=== PATIENT | female | born 1935 | race Two or more races ===

== ENCOUNTER 2019-09-08 15:41 | Inpatient (IN) | payer MEDICAID, MEDICARE, OTHER ==
[~2019-09-08] VITALS: Ht 167.6 cm; Wt 63.2 kg
[2019-09-08] MEDS ORDERED: PLEASE ENTER HEIGHT AND WEIGHT MC SCH (17:00)
[2019-09-08] MEDS ORDERED: SODIUM CHLORIDE FLUSH 10ML SYR IVF ONE (17:00)
[2019-09-08] MEDS ORDERED: PLEASE ENTER ALLERGIES MC SCH (17:00)
--- NOTE | 2019-09-08 17:00 | NUR ---
BIB BY ROYCE FROM [facility]/RIGHT SIDED FACIAL DROOP/CONFUSION (STARTED AT NOON). 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 HOWEVER TEMP 101.5. SON REPORTS SIMILIAR SYMPTOMS WITH PRIOR UTI'S, HR 115 PROVIDER TO BEDSIDE- TO WORKUP INFECTION AND STROKE (NOT CODE NEURO NOT WITHIN WINDOW) REPORT TO RENETTA BELTRE
--- NOTE | 2019-09-08 17:00 | NUR ---
REPORT FROM PATT CHUNG. PT SITTING UP IN BED, NAD NOTED AT THIS TIME. RESPIRATIONS EVEN AND UNLABORED ON RA. SON SITTING OUTSIDE OF ROOM. AWAITING LABS AND IMAGING.
[2019-09-08] MEDS ORDERED: LISI-170 PO (17:12)
[2019-09-08] MEDS ORDERED: ASPI-496 PO (17:12)
[2019-09-08] MEDS ORDERED: SIMV10TA3 PO (17:12)
[2019-09-08] MEDS ORDERED: METF500T27 PO (17:13)
--- NOTE | 2019-09-08 17:20 | NUR ---
LAB AT BEDSIDE. FULL SET OF LABS INCLUDING BLOOD CULTURES OBTAINED
[2019-09-08 17:28] LABS: BASOPHILS # (AUTO) 0.05 x10^3/uL (0-0.1); BASOPHILS % (AUTO) 1 % (0-1); EOSINOPHILS % (AUTO) 0 % (1-7); LYMPHOCYTES # (AUTO) 0.79 x10^3/uL (1-3.4); LYMPHOCYTES % (AUTO) 11 % (22-44); MD NO; MEAN CORPUSCULAR HEMOGLOBIN 28.4 pg (27.0-34.8); MEAN CORPUSCULAR HGB CONC 32.9 g/dL (32.4-35.8); MEAN CORPUSCULAR VOLUME 86.6 fL (80-100); MEAN PLATELET VOLUME 9.9 fL (7.4-10.4); MONOCYTES # (AUTO) 0.16 x10^3/uL (0.2-0.8); MONOCYTES % (AUTO) 2 % (2-9); NEUTROPHILS # (AUTO) 6.08 x10^3/uL (1.8-6.8); NEUTROPHILS % (AUTO) 86 % (42-75); PLATELET COUNT 193 x10^3/uL (130-400); RED BLOOD COUNT 4.25 x10^6/uL (3.82-5.3); RED CELL DISTRIBUTION WIDTH 14.7 % (9.6-15.2)
--- NOTE | 2019-09-08 17:32 | NUR ---
STRAIGHT CATH PERFORMED. CHAPERONED BY LUISA JAVIER (FEMALE) SPECIMEN SENT TO LAB FOR ANALYSIS TO CT SCAN AT 1731 PER SON NEURO EXAM REMAINS UNREMARKABLE (JUST SLIGHTLY CONFUSED)
[2019-09-08 17:41] LABS: ALANINE AMINOTRANSFERASE 16 U/L (12-78); ALBUMIN 3.9 g/dL (3.4-5.0); ANION GAP 8 mmol/L (5-15); CALCIUM 8.6 mg/dL (8.5-10.1); CHLORIDE 105 mmol/L (98-107); CREATININE 1.28 mg/dL (0.55-1.02)
[2019-09-08 17:43] LABS: ALKALINE PHOSPHATASE 62 U/L (45-117); BILIRUBIN,TOTAL 0.5 mg/dL (0.2-1.0); TOTAL PROTEIN 7.7 g/dL (6.4-8.2)
[2019-09-08 17:49] LABS: MICROSCOPIC NOT IND
[2019-09-08 17:51] LABS: CULTURE INDICATED? NO
--- NOTE | 2019-09-08 18:01 | NUR ---
PT RESTING BACK IN BED WATCHING TELEVISION. NAD NOTED AT THIS TIME. RESPIRATIONS EVEN ON RA. SON OUTSIDE OF ROOM. PT HARD OF HEARING, DENIES FURTHER NEEDS AT THIS TIME.
--- NOTE | 2019-09-08 19:10 | NUR ---
PT UP TO BATHROOM WITH ONE PERSON ASSIST/ESCORT. FULL BEDDING CHANGE, GOWN CHANGE, CHUX IN PLACE. HOSPITALIST AT BEDSIDE.
--- NOTE | 2019-09-08 19:27 | NUR ---
ITEMS FOR LP AT BEDSIDE.
[2019-09-08] MEDS ORDERED: BISACODYL 10 MG SUPP PR PRN (19:30)
[2019-09-08] MEDS ORDERED: ONDANSETRON 4 MG TABLET PO PRN (19:30)
[2019-09-08] MEDS ORDERED: ACETAMINOPHEN 650 MG/20.3 ML UDC PO PRN (19:30)
--- NOTE | 2019-09-08 20:05 | NUR ---
PT TOLERATED LP ATTEMPT WELL. UNABLE TO WITHDRAW ANY FLUID. LAYING BACK IN BED, PT AND SON AWARE OF NEED TO LAY FLAT.
--- NOTE | 2019-09-08 20:05 | NUR ---
CALL FOR REPORT.
--- NOTE | 2019-09-08 20:15 | NUR ---
CALL FOR REPORT.
--- NOTE | 2019-09-08 20:40 | NUR ---
THIRD ATTEMPT TO CALL REPORT.
[2019-09-08] MEDS: SIMVASTATIN 10 MG TABLET PO SCH (21:24)
[2019-09-08] MEDS: SODIUM CHLORIDE 0.9% 1,000 ML IV SCH (21:24)
[2019-09-08 23:30] VITALS: BP 127/68
[2019-09-09] VITALS (8 sets, daily range): BP systolic 106–150; BP diastolic 58–96
[2019-09-09] MEDS: SENNA/DOCUSATE TABLET PO PRN (05:37)
[2019-09-09 05:49] LABS: CHLORIDE 110 mmol/L (98-107)
[2019-09-09 06:04] LABS: ALANINE AMINOTRANSFERASE 20 U/L (12-78); ALBUMIN 3.1 g/dL (3.4-5.0); ALKALINE PHOSPHATASE 48 U/L (45-117); ANION GAP 5 mmol/L (5-15); BILIRUBIN,TOTAL 0.6 mg/dL (0.2-1.0); CALCIUM 8.2 mg/dL (8.5-10.1); CHOL/HDL RATIO 2.3; CHOLESTEROL, TOTAL 137 mg/dL (140-239); CREATININE 1.13 mg/dL (0.55-1.02); HDL CHOL % 43 % (28-40); HDL CHOLESTEROL (DIRECT) 59 mg/dL (40-60); LDL CHOLESTEROL,CALCULATED 65 mg/dL (54-169); LDL/HDL RATIO 1.1 (0.5-3.0); TOTAL PROTEIN 6.4 g/dL (6.4-8.2); TRIGLYCERIDES 63 mg/dL (50-200); VLDL CHOLESTEROL 13 mg/dL (0-25)
[2019-09-09 06:29] LABS: BASOPHILS # (AUTO) 0.04 x10^3/uL (0-0.1); BASOPHILS % (AUTO) 1 % (0-1); EOSINOPHILS # (AUTO) 0.09 x10^3/uL (0-0.4); EOSINOPHILS % (AUTO) 2 % (1-7); LYMPHOCYTES # (AUTO) 1.22 x10^3/uL (1-3.4); LYMPHOCYTES % (AUTO) 26 % (22-44); MD NO; MEAN CORPUSCULAR HEMOGLOBIN 28.5 pg (27.0-34.8); MEAN CORPUSCULAR HGB CONC 32.8 g/dL (32.4-35.8); MEAN CORPUSCULAR VOLUME 86.8 fL (80-100); MEAN PLATELET VOLUME 10.2 fL (7.4-10.4); MONOCYTES % (AUTO) 9 % (2-9); NEUTROPHILS # (AUTO) 2.88 x10^3/uL (1.8-6.8); NEUTROPHILS % (AUTO) 62 % (42-75); PLATELET COUNT 164 x10^3/uL (130-400); RED BLOOD COUNT 3.81 x10^6/uL (3.82-5.3); RED CELL DISTRIBUTION WIDTH 14.9 % (9.6-15.2)
[2019-09-09] MEDS ORDERED: CYANOCOBALAMIN 1,000 MCG/ML, 1ML IM ONE (07:00)
[2019-09-09] MEDS: SODIUM CHLORIDE 0.9% 1,000 ML IV SCH (08:50)
[2019-09-09] MEDS: ASPIRIN 81 MG TABLET CHEW PO/NG SCH (09:58)
[2019-09-09] MEDS ORDERED: GADOTERATE 7.5 MMOL/15 ML SYR ONE (14:27)
[2019-09-09] MEDS ORDERED: LIDOCAINE-MPF 1%, 5ML ONE (14:50)
[2019-09-09] MEDS: SIMVASTATIN 10 MG TABLET PO SCH (21:14)
[2019-09-10 00:19] VITALS: BP 170/69
[2019-09-10 04:33] LABS: BASOPHILS # (AUTO) 0.05 x10^3/uL (0-0.1); BASOPHILS % (AUTO) 1 % (0-1); EOSINOPHILS # (AUTO) 0.13 x10^3/uL (0-0.4); EOSINOPHILS % (AUTO) 3 % (1-7); LYMPHOCYTES # (AUTO) 1.03 x10^3/uL (1-3.4); LYMPHOCYTES % (AUTO) 25 % (22-44); MD NO; MEAN CORPUSCULAR HEMOGLOBIN 28.3 pg (27.0-34.8); MEAN CORPUSCULAR HGB CONC 32.3 g/dL (32.4-35.8); MEAN CORPUSCULAR VOLUME 87.8 fL (80-100); MEAN PLATELET VOLUME 9.9 fL (7.4-10.4); MONOCYTES # (AUTO) 0.35 x10^3/uL (0.2-0.8); MONOCYTES % (AUTO) 9 % (2-9); NEUTROPHILS # (AUTO) 2.55 x10^3/uL (1.8-6.8); NEUTROPHILS % (AUTO) 62 % (42-75); PLATELET COUNT 167 x10^3/uL (130-400); RED BLOOD COUNT 4.24 x10^6/uL (3.82-5.3); RED CELL DISTRIBUTION WIDTH 14.4 % (9.6-15.2)
[2019-09-10 04:44] LABS: ANION GAP 5 mmol/L (5-15); CALCIUM 8.6 mg/dL (8.5-10.1); CHLORIDE 109 mmol/L (98-107)
[2019-09-10 04:45] LABS: CREATININE 1.09 mg/dL (0.55-1.02)
[2019-09-10 06:11] VITALS: BP 180/70
[2019-09-10 08:46] LABS: RAPID INFLUENZA A Negative (Negative); RAPID INFLUENZA B Negative (Negative)
[2019-09-10] MEDS: AMLODIPINE 5 MG TABLET PO SCH ×3 (08:54→20:07)
[2019-09-10] MEDS: ASPIRIN 81 MG TABLET CHEW PO/NG SCH (08:54)
[2019-09-10] MEDS: AMOXICILLIN/CLAV 875-125MG TABLET PO SCH ×2 (08:54→20:07)
[2019-09-10] MEDS ORDERED: LISI5TAB7 PO (09:03)
[2019-09-10 09:55] VITALS: BP 119/63
[2019-09-10 12:44] VITALS: BP 173/76
[2019-09-10 17:30] VITALS: BP 142/62
[2019-09-10 20:02] VITALS: BP 173/70
[2019-09-10] MEDS: POLYETHYLENE GLYCOL 17 GM PACKET PO PRN (20:07)
[2019-09-10] MEDS: SENNA/DOCUSATE TABLET PO PRN (20:07)
[2019-09-10] MEDS: SIMVASTATIN 10 MG TABLET PO SCH (20:07)
[2019-09-11 00:08] VITALS: BP 148/72
[2019-09-11 05:06] LABS: BASOPHILS # (AUTO) 0.05 x10^3/uL (0-0.1); BASOPHILS % (AUTO) 1 % (0-1); EOSINOPHILS # (AUTO) 0.17 x10^3/uL (0-0.4); EOSINOPHILS % (AUTO) 4 % (1-7); LYMPHOCYTES # (AUTO) 0.99 x10^3/uL (1-3.4); LYMPHOCYTES % (AUTO) 24 % (22-44); MD NO; MEAN CORPUSCULAR HEMOGLOBIN 28.4 pg (27.0-34.8); MEAN CORPUSCULAR HGB CONC 32.6 g/dL (32.4-35.8); MONOCYTES # (AUTO) 0.28 x10^3/uL (0.2-0.8); MONOCYTES % (AUTO) 7 % (2-9); NEUTROPHILS # (AUTO) 2.62 x10^3/uL (1.8-6.8); NEUTROPHILS % (AUTO) 64 % (42-75); PLATELET COUNT 168 x10^3/uL (130-400); RED BLOOD COUNT 4.23 x10^6/uL (3.82-5.3); RED CELL DISTRIBUTION WIDTH 14.5 % (9.6-15.2)
[2019-09-11 05:16] LABS: ALBUMIN 3.1 g/dL (3.4-5.0); ANION GAP 6 mmol/L (5-15); CALCIUM 8.6 mg/dL (8.5-10.1); CHLORIDE 106 mmol/L (98-107)
[2019-09-11 05:21] LABS: ALANINE AMINOTRANSFERASE 12 U/L (12-78); ALKALINE PHOSPHATASE 56 U/L (45-117); BILIRUBIN,TOTAL 0.7 mg/dL (0.2-1.0); CREATININE 0.98 mg/dL (0.55-1.02); TOTAL PROTEIN 6.6 g/dL (6.4-8.2)
[2019-09-11 06:20] VITALS: BP 152/68
[2019-09-11] MEDS: ASPIRIN 81 MG TABLET CHEW PO/NG SCH (08:43)
[2019-09-11] MEDS: POLYETHYLENE GLYCOL 17 GM PACKET PO PRN (08:43)
[2019-09-11] MEDS: AMOXICILLIN/CLAV 875-125MG TABLET PO SCH (08:43)
[2019-09-11] MEDS: AMLODIPINE 5 MG TABLET PO SCH (08:43)
[2019-09-11] MEDS: SENNA/DOCUSATE TABLET PO PRN (08:43)
[2019-09-11] MEDS ORDERED: ASPI-515 PO/NG (11:59)
[2019-09-11] MEDS ORDERED: ATOR20TA86 PO (11:59)
[2019-09-11] MEDS ORDERED: AMOX1TAB12 PO (11:59)
[2019-09-11] MEDS ORDERED: AMLO-150 PO (11:59)
[2019-09-11 12:33] VITALS: BP 128/72
== END 2019-09-11 13:50 | disposition home or self-care (01) | DRG 69 ==
LOC: ED 18:30 → EDIP 18:31 → ED 18:49 → 4EST 21:01 → DCLOUNGE 09-11 13:42
PROVIDERS: ADMIT Internal Medicine; ATTEND Hospitalist
PROC: 0T9B70Z Drainage of Bladder with Drainage Device, Via Natural or Artificial Opening (ICD-10-PCS; principal; 2019-09-08)
PROC: 00JU3ZZ Inspection of Spinal Canal, Percutaneous Approach (ICD-10-PCS; 2019-09-08)
DX: G45.9 Transient cerebral ischemic attack, unspecified (principal); N17.0 Acute kidney failure with tubular necrosis; G93.40 Encephalopathy, unspecified; R47.01 Aphasia; E87.5 Hyperkalemia; E11.51 Type 2 diabetes mellitus with diabetic peripheral angiopathy without gangrene; E78.5 Hyperlipidemia, unspecified; H02.401 Unspecified ptosis of right eyelid; H70.90 Unspecified mastoiditis, unspecified ear; I10 Essential (primary) hypertension; Z66 Do not resuscitate; Z79.84 Long term (current) use of oral hypoglycemic drugs; Z82.5 Family history of asthma and other chronic lower respiratory diseases
CPT/HCPCS: 36415; 62328; 70450; 70553; 71045; 80048; 80053; 80061; 81003; 82140; 82607; 82962; 83036; 83605; 83690; 83735; 84100; 84145; 84443; 85025; 87040; 87400; 93005; 93306; 93880; 99285; G0378; 92523-GN; A9575; J3420; J7030